=== PATIENT | female | born 1950 | race Caucasian/White ===

== ENCOUNTER → 2020-08-21 08:31 | Outpatient (CLI) | payer BC, MEDICARE, SELFPAY ==
--- NOTE | ~2020-08-21 | MR_ITS ---
EXAMINATION: MR lumbar spine wo con DATE: 08/21/2020 09:24 INDICATION: Degenerative disc disease with re-4 months of low back pain. TECHNIQUE: Magnetic resonance imaging (MRI) of the lumbar spine was performed without intravenous con trast. Sequences included sagittal T2-weighted FSE, sagittal T2-weighted FS FSE, sagittal T1-weighted FSE, and axial T2-weighted FSE. COMPARISON: None FINDINGS: Approximately 10 degree thoracolumbar levocurvature. 2 mm retrolisthesis T12 on L1 and L2 on L3 and 3 mm retrolisthesis L1 on L2. Vertebral body heights are normal. A few T1 hyperintense hemangiomas at T11, T12, L3, L5 and S1. Marrow signal is otherwise normal. Moderate disc height loss at T11-T12 thro ugh L1-L2 and mild disc height loss at the remaining more caudal levels from L2-L3 through L5-S1. Mul tiple annular fissures at each of the levels from T10-T11 through L5-S1 with the exception of T11-T12 . The conus medullaris terminates at T12-L1. There is normal signal in the caudal spinal cord. Parave rtebral soft tissues are unremarkable. The following disc levels are specifically discussed: T10-T7: Disc is bulging. There is moderate bilateral facet joint osteoarthritis. There is mild left a nd moderate right neural foraminal stenosis. There is mild central canal stenosis. T11-T12: Disc is mildly bulging. There is mild bilateral facet joint osteoarthritis. There is no neur al foraminal stenosis. There is minimal central canal stenosis. T12-L1: Disc is bulging with superimposed small central disc extrusion with disc material extending c ouple millimeters cephalad and caudal to the level of the endplates. There is moderate bilateral face t joint osteoarthritis. There is no neural foraminal stenosis. There is mild to moderate central chrystal l stenosis. L1-L2: Broad-based disc extrusion extending from foraminal zone to foraminal zone with disc material extending couple millimeter cephalad and caudal to the level of the endplates. There is hypertrophy o f the ligamentum flavum. There is moderate left and severe right facet joint osteoarthritis. There is moderate bilateral neural foraminal stenosis. There is moderate central canal stenosis. L2-L3: Broad-based disc extrusion extending from foraminal zone to foraminal zone with disc material extending couple millimeter cephalad and caudal to the level of the endplates. There is hypertrophy o f the ligamentum flavum. There is moderate left and severe right facet joint osteoarthritis. There i s moderate bilateral neural foraminal stenosis. There is severe central canal stenosis. L3-L4: Disc is mildly bulging. There is hypertrophy of the ligamentum flavum. There is moderate left and severe right facet joint osteoarthritis. There is moderate right and mild to moderate left neural foraminal stenosis. There is moderate to severe central canal stenosis. L4-L5: Disc is bulging with small central disc extrusion with disc material extending couple millimet er caudal to the level of the superior endplate of L5. There is hypertrophy of the ligamentum flavum. There is severe bilateral facet joint osteoarthritis. There is mild to moderate bilateral neural for aminal stenosis. There is severe central canal stenosis. L5-S1: Disc is bulging. There is hypertrophy of the ligamentum flavum. There is severe bilateral fac et joint osteoarthritis. There is moderate right and mild to moderate left neural foraminal stenosis. There is mild central canal stenosis. IMPRESSION: 1. Mild lumbar and lower thoracic levoscoliosis with severe spondylosis. Reviewed, dictated and finalized at location A.
== END ==
PROVIDERS: PCP Family Medicine; Visit Provider Nurse Practitioner Family
DX: M51.36 Other intervertebral disc degeneration, lumbar region (principal); M47.26 Other spondylosis with radiculopathy, lumbar region
CPT/HCPCS: 72148

== ENCOUNTER → 2020-12-20 10:28 | Outpatient (CLI) | payer BC, MEDICARE, SELFPAY ==
--- NOTE | ~2020-12-20 | US_ITS ---
EXAMINATION: US thyroid EXAM DATE: 12/20/2020 11:02 INDICATION: Thyroid nodule. TECHNIQUE: Multiple grayscale and Doppler images of the thyroid were obtained (by a technologist who performed the scan) and subsequently reviewed. Individual nodules and recommendations may be reporte d in accordance with TI-RADS system as designated by the 2017 ACR White Paper TI-RADS committee. The re is no prior study for comparison. FINDINGS: The right thyroid lobe measures 3.8 x 1.1 x 1.2 cm, the left measuring 3.5 x 1.2 x 1.3 cm. Relatively homogeneous thyroid echogenicity. There is a left thyroid lobe nodule measuring 7 x 7 x 6 mm , solid (2 points), hypoechoic (2 points), wider than tall, smooth well defined margin, without echogenic foci, category TR4 for this nodule. IMPRESSION: Subcentimeter left thyroid lobe nodule, most likely benign. Optional one-year follow-up u ltrasound. Reviewed, dictated and finalized at location A. IMPRESSION: Subcentimeter left thyroid lobe nodule, most likely benign. Optiona l one-year follow-up ultrasound.
== END ==
PROVIDERS: PCP Family Medicine; Visit Provider Family Medicine
DX: E04.1 Nontoxic single thyroid nodule (principal)
CPT/HCPCS: 76536

== ENCOUNTER 2022-04-21 08:14 | Outpatient (CLI) | payer MEDICARE, SELFPAY ==
--- NOTE | ~2022-04-21 | US_ITS ---
EXAMINATION: US venous doppler LE RT DATE: 04/21/2022 09:10 INDICATION: Elevated d-dimer. TECHNIQUE: Grayscale ultrasound images without and with compression and Doppler ultrasound images of the right lower extremity veins were obtained. COMPARISON: None. FINDINGS: The visualized portions of right common femoral vein, profunda (deep) femoral vein, femoral vein, pop liteal vein, peroneal veins, posterior tibial veins, and greater saphenous vein outflow are patent. T here is a moderate-sized Brady's cyst. IMPRESSION: 1. No deep venous thrombosis. 2. Moderate-sized right Brady's cyst. Reviewed, dictated and finalized at location A. NT ACQUISITION ASSISTANT
== END 2022-04-21 08:15 | disposition home or self-care (01) ==
PROVIDERS: PCP Family Medicine; Visit Provider Family Medicine
DX: R79.89 Other specified abnormal findings of blood chemistry (principal); M71.21 Synovial cyst of popliteal space [Baker], right knee
CPT/HCPCS: 93971

== ENCOUNTER → 2022-04-21 12:37 | Outpatient (CLI) | payer MEDICARE, SELFPAY ==
--- NOTE | ~2022-04-21 | DEXA_ITS ---
Bone Density Report Name: SURENDRA WHITLOCK Age: 72 Sex: Female Ethnicity: White Date of : 1950 Indication: postmenopausal; screening for osteoporosis; height loss; hysterectomy; Referring Provider: BARRETT PADILLA Study: Bone densitometry was performed. Exam Date: April 21, 2022 Accession number: [id number] Bone Density: Region BMD T-score Z-score Classification AP Spine (L1-L4) 1.193 1.3 3.7 Normal Femoral Neck (Left) 0.570 -2.5 -0.5 Osteoporosis Total Hip (Left) 0.748 -1.6 0.1 Osteopenia Femoral Neck (Right) 0.600 -2.2 -0.2 Osteopenia Total Hip (Right) 0.832 -0.9 0.8 Normal Total Hip Mean 0.790 -1.3 0.5 Osteopenia World Health Organization criteria for BMD impression classify patients as: Normal (T-score at or above -1.0), Osteopenia (T-score between -1.0 and -2.5), or Osteoporosis (T-score at or below -2.5). 10-year Fracture Risk: FRAX not reported because: Some T-score for Spine Total or Hip Total or Femoral Neck at or below -2.5 Clinical Information Provided by Patient: Has used the following medications: Calcium, vit D included in Calcium Has the following medical conditions: Hysterectomy Patient maximum height was 62 Menopause Age: 32 No regular weight bearing exercise Does not regularly consume dairy products Drinks caffeinated beverages Onset of menses at age 9 Number of children 3 Impression: The patient has osteoporosis, based on the Left Femoral Neck T-score. Discussion: INCREASED RISK OF FRACTURE. BONE DENSITY IS UNDESIRABLY LOW AT ONE OR MORE SKELETAL SITES, CONSISTENT WITH POSTMENOPAUSAL OSTEOPOROSIS. This patient's lowest T-score meets the World Health Organization's (WHO) criteria for osteoporosis at one or more sites (T-score -2.5 or below). In untreated patients, the risk of osteoporotic fracture increases approximately two-fold for each 1.0 SD decrease in T-score. Low bone density is not the only risk factor for fracture; also consider factors such as patient's age, frailty or poor health, risk of falling, risk of injury, previous osteoporotic fracture, family history of osteoporosis, cigarette smoking, low body weight, etc. Not everyone with low bone mineral density has osteoporosis; osteomalacia and other metabolic bone disorders should also be considered. Patients who have osteoporosis should be evaluated for specific diseases and conditions (secondary causes) that may cause or contribute to bone loss. The [place] [employer]ocrin[employer] (AACE) and National Osteoporosis Foundation (NOF) recommend pharmacologic intervention for all postmenopausal women whose T-score is in this range. The patient should follow a healthful lifestyle (good nutrition with adequate calcium and vitamin D, and appropriate weight-bearing exercise). Follow-Up: Consider a re
== END ==
PROVIDERS: PCP Family Medicine; Visit Provider Family Medicine
DX: Z78.0 Asymptomatic menopausal state (principal); M85.89 Other specified disorders of bone density and structure, multiple sites; M81.0 Age-related osteoporosis without current pathological fracture
CPT/HCPCS: 77080

== ENCOUNTER → 2023-02-13 08:18 | Outpatient (CLI) | payer MEDICARE, SELFPAY ==
--- NOTE | ~2023-02-13 | MR_ITS ---
MRI of the lumbar spine Clinical History: Back pain Technique: Axial T2-weighted images, and sagittal T1-weighted, T2-weighted, and T2 fat-sat images wer e acquired. COMPARISON: 08/21/2020 Findings: No fracture identified. Osseous alignment is similar to prior exam. There is 5 mm retrolist hesis of L1 over L2. There is 5 mm retrolisthesis of L2 over L3. There is 3 mm retrolisthesis of T12 over L1. Intraosseous hemangioma of L3 noted. No suspicious bone marrow signal abnormality seen. At L1-L2, there is moderate to advanced degenerative disc narrowing. There is mild disc bulge with mo derate to advanced facet arthropathy. There is moderate central canal stenosis/thecal sac compression . There is moderate to advanced bilateral neural foraminal narrowing. At L2-L3, there is moderate to advanced degenerative disc narrowing. Disc bulge and severe facet arth ropathy result in severe spinal canal stenosis/thecal sac compression. There is severe bilateral neur al foraminal narrowing. At L3-L4, disc bulge and severe facet arthropathy results in mild central canal stenosis. There is mo derate to advanced right neural foraminal narrowing. There is minimal left neural foraminal narrowing . At L4-L5, diffuse disc bulge and severe facet arthropathy result in moderate to severe central canal stenosis/thecal sac compression. There is moderate to advanced bilateral neural foraminal narrowing. At L5-S1, there is mild disc bulge and advanced facet arthropathy. No central canal stenosis. There i s moderate to severe left neural foraminal narrowing, and severe right neural foraminal narrowing. Paravertebral soft tissues are unremarkable. Impression: Severe degenerative spondylosis, as detailed above. 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 Reviewed, dictated and finalized at [facility]. Impression: Severe degenerative spondylosis, as detailed above. 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
== END ==
PROVIDERS: PCP Family Medicine; Visit Provider Neurological Surgery
DX: M43.15 Spondylolisthesis, thoracolumbar region (principal); M47.816 Spondylosis without myelopathy or radiculopathy, lumbar region
CPT/HCPCS: 72148